=== PATIENT | male | born 1990 | race Caucasian/White ===

== ENCOUNTER → 2018-06-01 | Outpatient (CLI) | payer OTHER ==
--- NOTE | 2018-06-01 15:18 | RAD ---
Lumbar spine, 2 views, 06/01/2018: HISTORY: Low back pain since a fall. A spinal fracture The lumbar vertebral heights are well-maintained. There is a lucency projected over the pars interarticularis at L5 suggesting spondylolysis. There appears to be very slight associated anterolisthesis at L5-S1. There is mild spurring at the L5-S1 disc level. The other intervertebral disc spaces are well-maintained. The paraspinous soft tissues are unremarkable. IMPRESSION: Probable spondylolysis at L5 with minimal anterolisthesis and mild degenerative change at the L5-1 disc level. Electronically signed by: Thad Harris MD (06/01/2018 3:14 PM) [facility]
--- NOTE | 2018-06-01 15:19 | RAD ---
Left knee, 2 views, 06/01/2018: HISTORY: Knee pain No fracture or dislocation is identified. No significant arthritic change is evident. The soft tissues are unremarkable. IMPRESSION: No significant left knee abnormality is detected. Electronically signed by: Thad Harris MD (06/01/2018 3:15 PM) [facility]
== END | disposition home or self-care (01) ==
LOC: RAD 09:20
PROVIDERS: ATTEND Internal Medicine Infectious Disease
DX: M43.16 Spondylolisthesis, lumbar region (principal); M51.36 Other intervertebral disc degeneration, lumbar region; M46.07 Spinal enthesopathy, lumbosacral region; M25.562 Pain in left knee
CPT/HCPCS: 72100; 73560